=== PATIENT | male | born 1950 | race Caucasian/White ===

== ENCOUNTER 2016-05-25 13:32 | Emergency (ER) | payer OTHER ==
[2016-05-25] MEDS ORDERED: Furosemide 40 MG/4 ML VIAL ONE (14:15)
[2016-05-25 14:26] LABS: INR-International Normal Ratio 1.1; PTT 28.3 SEC (22.9-36.1); Prothrombin Time 14.8 SEC (12.0-14.7)
[2016-05-25 14:33] LABS: #Basophils 0.2 thou/uL (0.0-0.2); #Eosinphils 0.1 thou/uL (0.0-0.7); #Lymphocytes 0.9 thou/uL (1.20-3.40); #Monocytes 0.9 thou/uL (0.11-0.59); #Neutrophils 7.8 thou/uL (1.40-6.50); %Basophils 1.9 % (0.0-1.0); %Eosinophils 0.9 % (0.0-10.0); %Lymphocytes 9.3 % (21.0-51.0); %Neutrophils 78.9 % (42.0-75.0); Hemoglobin 15.5 g/dL (14.0-18.0); Mean Corpuscular HGB CONC 33.3 g/dL (32.0-36.0); Mean Corpuscular Hemoglobin 33.2 pg (27.0-31.0); Mean Corpuscular Volume 99.7 fl (80.0-94.0); Mean Platelet Volume 6.8 fL (7.4-10.4); Platelet Count 294 thou/uL (130-400); RBC Distribution Width 12.5 % (11.5-14.5); Red Blood Cell (RBC) Count 4.67 mill/uL (4.70-6.10); White Blood Cell (WBC) Count 9.9 thou/uL (4.8-10.8)
[2016-05-25 14:37] LABS: ALT (SGPT) 67 U/L (0-55); AST (SGOT) 90 U/L (5-34); Albumin 3.5 g/dL (3.4-4.8); Alkaline Phosphatase 278 U/L (40-150); Anion Gap 16 mmol/L (10-20); BUN (Urea Nitrogen) 16 mg/dL (8.4-25.7); Calc. Creatinine Clearance 0 mL/min (70-130); Calcium 8.8 mg/dL (7.8-10.44); Carbon Dioxide 21 mmol/L (23-31); Chloride 107 mmol/L (98-107); Estimated GFR-MDRD Greater than 90; Globulin 2.7 g/dL (2.4-3.5); Glucose 111 mg/dL (80-115); Potassium 4.1 mmol/L (3.5-5.1); Protein, Total 6.2 g/dL (5.8-8.1); Sodium 140 mmol/L (136-145)
--- NOTE | 2016-05-25 14:52 | RAD ---
PORTABLE CHEST: HISTORY: Dyspnea. COMPARISON: No comparison. FINDINGS: There is patchy infiltrate and/or atelectasis in the right lower lung. Also, some mild infiltrate a nd/or atelectasis in the left lung base. Blunting of the left CP angle suggests small left effusion . Upper lung gomez appear clear. Heart size upper normal. Plate and screws transfix the right clavicle. IMPRESSION: Evidence of confluent infiltrate and/or atelectasis in the right lower lung. Possible patchy atelec tasis and/or infiltrate in the left lung base with evidence of small left effusion. POS: [facility]
== END 2016-05-25 17:45 | disposition left against medical advice (07) ==
LOC: MADERS 13:32
DX: R18.8 Other ascites (principal); J90 Pleural effusion, not elsewhere classified; I48.92 Unspecified atrial flutter
CPT/HCPCS: 71010; 80053; 83605; 83880; 85025; 85610; 85730; 93005; 94760; 96374; J1940